=== PATIENT | female | born 1950 | race Caucasian/White ===

== ENCOUNTER 2016-09-08 07:32 | Emergency (ER) | payer OTHER ==
--- NOTE | ~2016-09-08 | CR281 ---
[facility] A Service of [facility] RADIOLOGY TEXT RESULTS PATIENT: JANNET GUERRA LOCATION: [facility] : 52 UNIT #: [id number] AGE: [address]: Danielle Mccormick SEX: F ORDER DR: [id number] [facility] [address] [place], [place] [address] [id number] E MR#: [id number] Acc #: [id number] NAME: JANNET GUERRA : 1950 SEX: F STUDY DATE/TIME: 09/08/2016 7:59 UNIT: [facility] ROOM: STUDY DESCRIPTION: CR Wrist Min 3 View Lt Attending Physician: Danielle Mccormick P.A.-C. Ordering Physician: Danielle Mccormick P.A.-C. Primary Care Physician: Fadi Turner M.D. MEDICAL IMAGING REPORT This report is preliminary unless electronic signature is present EXAM Left wrist series, 09/08/2016. HISTORY Trauma. Left wrist deformity. Patient fell today. TECHNIQUE AP, lateral, oblique radiographs of the left wrist are presented. FINDINGS There is a minimally displaced fracture through the ulnar styloid process. There is a complete, mildly comminuted, intraarticular fracture of the distal radius. Fracture plane is oblique from the distal dorsal radius extending proximally to the anterior aspect of radius. I believe there is a longitudinal fracture plane faintly visualized on the oblique view which enters the ulnar aspect of the radial articular surface. This fracture plane shows no distraction or displacement. The dominant fragments are angled posteriorly and displaced in radial direction by about 1-2 mm. The proximal carpal row remains aligned with radial articular surface. Carpal bones themselves appear intact. Proximal hand shows no acute bony abnormality. Prominent circumferential soft tissue swelling around the visualized forearm and wrist. There is no soft tissue defect, subcutaneous air, or radiodense foreign body. Dictated by... Richard Bartholomew M.D. THIS IS AN ELECTRONICALLY VERIFIED REPORT Richard Bartholomew M.D. at 09/14/2016 10:15 AM KRISTAL/tmw [facility] A Service of [facility] RADIOLOGY TEXT RESULTS PATIENT: JANNET GUERRA LOCATION: [facility] : 52 UNIT #: [id number] AGE: [address]: Danielle Mccormick SEX: F ORDER DR: TD: 09/08/2016 10:07 JOB #: [id number] MEDICAL IMAGING REPORT Page 1 of 1 COPY
== END 2016-09-08 09:24 | disposition home or self-care (01) ==
LOC: CED 07:32
DX: S52.572A Other intraarticular fracture of lower end of left radius, initial encounter for closed fracture (principal); S52.612A Displaced fracture of left ulna styloid process, initial encounter for closed fracture; I10 Essential (primary) hypertension; F17.210 Nicotine dependence, cigarettes, uncomplicated; W01.0XXA Fall on same level from slipping, tripping and stumbling without subsequent striking against object, initial encounter; Y92.69 Other specified industrial and construction area as the place of occurrence of the external cause; Y99.0 Civilian activity done for income or pay
CPT/HCPCS: 29125; 73110; 99283